=== PATIENT | male | born 1995 ===

== ENCOUNTER → 2016-06-17 | Outpatient (REF) | payer OTHER ==
[2016-06-17 14:56] LABS: IMMOTILITY 3 %; NON PROGRESSIVE MOTILITY (c) 9 %; PROGRESSIVE MOTILITY (a) 88 % (>=32); SPERM ABNORMAL FORMS WBC'S NOTED; TOTAL MOTILITY 97 % (>=40)
[2016-06-17 14:57] LABS: % NORMAL FORMS 34 % (>=4); SPERM# 115.4 M/Ejac (33-46); TOTAL FUNCTIONAL 56.6 M/Ejac.
== END ==
LOC: M LAB REF 14:53
PROVIDERS: ATTEND Physician Assistant
DX: Z31.41 Encounter for fertility testing (principal)